=== PATIENT | female | born 1985 | race Caucasian/White ===

== ENCOUNTER → 2024-08-13 | Day surgery (SDC) | payer BC ==
[2024-08-07 12:11] LABS: BASOPHILS % 0.7 % (0.0-1.0); EOSINOPHILS # (AUTO) 0.1 (0.0-0.4); EOSINOPHILS % 2.4 % (0.0-6.0); HEMATOCRIT 30.1 % (34.2-44.1); HEMOGLOBIN 10.2 g/dL (12.0-16.0); LYMPHOCYTES # (AUTO) 1.6 (1.0-3.2); LYMPHOCYTES % 29.8 % (18.0-39.1); MEAN CORPUSCULAR HEMOGLOBIN 30.7 pg (28-32); MEAN CORPUSCULAR HGB CONC 33.9 g/dL (31-35); MEAN CORPUSCULAR VOLUME 90.7 fL (81-99); MONOCYTES # (AUTO) 0.4 (0.2-0.8); MONOCYTES % 8.1 % (4.4-11.3); NEUTROPHILS # (AUTO) 3.2 (2.1-6.9); NEUTROPHILS % 58.6 % (38.7-80.0); PLATELET COUNT 100 x10e3/uL (140-360); RED BLOOD COUNT 3.32 x10e6/uL (3.6-5.1); RED CELL DISTRIBUTION WIDTH 13.9 % (11.7-14.4); WHITE BLOOD COUNT 5.43 x10e3/uL (4.8-10.8)
[2024-08-07 12:28] LABS: INR 1.27; PROTHROMBIN TIME 16.5 seconds (11.9-14.5)
[2024-08-07 12:29] LABS: PARTIAL THROMBOPLASTIN TIME 37.7 seconds (23.8-35.5)
[2024-08-07 12:38] LABS: ALBUMIN/GLOBULIN RATIO 1.2 (0.8-2.0); BILIRUBIN,TOTAL 1.8 mg/dL (0.2-1.2); CALCIUM 10.2 mg/dL (8.4-10.2); CREATININE, SERUM 0.84 mg/dL (0.57-1.11); TOTAL PROTEIN 7.4 g/dL (6.5-8.1)
[~2024-08-13] MED LIST: ACETAMINOPHEN 1000 MG/100 ML IV ONE; ALPRAZOLAM0.5 MG PO; DEXAMETHASONE SOD PHOS INJ 4 MG/ML SDV ONE; FENTANYL CITRATE/PF 100MCG/2 ML INJ ONE; KEPPRA500 MG PO; LIDOCAINE HCL 2% LOCAL INJ 5 ML SDV VIAL INJ ONE; METOCLOPRAMIDE HCL 10 MG/2ML VIAL ONE; MIDAZOLAM HCL 2 MG/2 ML VIAL ONE; ONDANSETRON HCL INJ 2MG/ML 2ML 2 MG/ML VIAL ONE; PROPOFOL IV EMULSION 10 MG/ML 20 ML VIAL ONE; SEVOFLURANE INHAL SOLN 250 ML PEN BTL ONE; TOPIRAMATE25 MG PO
[2024-08-13] MEDS: LACTATED RINGER'S 1,000 ML ONE (06:03)
[2024-08-13 08:40] VITALS: TEMP 97.7
[2024-08-13 09:33] VITALS: BP 105/63; PULSE 66; RESP 18; O2SAT 100
== END | disposition home or self-care (01) ==
LOC: OR 05:22
PROVIDERS: ATTEND Obstetrics & Gynecology
DX: N93.9 Abnormal uterine and vaginal bleeding, unspecified (principal); G40.909 Epilepsy, unspecified, not intractable, without status epilepticus; F41.8 Other specified anxiety disorders; K70.30 Alcoholic cirrhosis of liver without ascites; K92.2 Gastrointestinal hemorrhage, unspecified; Z86.2 Personal history of diseases of the blood and blood-forming organs and certain disorders involving the immune mechanism; K58.9 Irritable bowel syndrome, unspecified; E78.5 Hyperlipidemia, unspecified; R01.1 Cardiac murmur, unspecified; J45.909 Unspecified asthma, uncomplicated; Z01.812 Encounter for preprocedural laboratory examination; Z79.899 Other long term (current) drug therapy
CPT/HCPCS: 36415; 58558; 80053; 84702; 85025; 85610; 85730; 88305; J0131; J1100; J2003; J2250; J2405; J2704; J2765; J3010; J7121